=== PATIENT | female | born 1955 | race Caucasian/White ===

== ENCOUNTER 2017-11-10 08:56 | Emergency (ER) | payer BC, SELFPAY ==
[2017-11-10] MEDS ORDERED: Ibuprofen 800 MG TAB ONE (09:37)
--- NOTE | 2017-11-10 09:51 | RAD ---
RIGHT ANKLE 3 VIEWS: Date: 11/10/17 PROVIDED CLINICAL HISTORY: Right ankle pain status post fall. FINDINGS: Comparison made with the study dated 12/08/16. There is a somewhat irregular appearance to the lateral process of the talus that was not definitely present on the prior study. This could reflect osteophyte formation, though nondisplaced lateral zachery r process fracture cannot be excluded. There is a nondisplaced fracture involving the ac of the fift h metatarsal. Plantar calcaneal enthesophyte formation is seen. IMPRESSION: 1. Base of fifth metatarsal fracture. 2. Irregular appearance to the lateral process of the talus without adjacent soft tissue swelling. POS: [facility]
--- NOTE | 2017-11-10 10:03 | RAD ---
RIGHT FOOT 3 VIEWS: Date: 11/10/17 PROVIDED CLINICAL HISTORY: Injury. FINDINGS: Nondisplaced extraarticular base of fifth metatarsal fracture. No additional fracture is evident. Fannie ntar calcaneal enthesophyte formation is noted. IMPRESSION: Nondisplaced fifth metatarsal fracture. POS: [facility]
--- NOTE | 2017-11-10 10:03 | RAD ---
LEFT FOREARM 2 VIEWS: Date: 11/10/17 PROVIDED CLINICAL HISTORY: Pain status post injury. FINDINGS: There is no evidence for fracture or other acute osseous abnormality. If there is persistent clinical concern, conservative management and follow-up imaging are advised. IMPRESSION: As above. POS: [facility]
== END 2017-11-10 10:23 | disposition home or self-care (01) ==
LOC: ERS 08:56
DX: S92.354A Nondisplaced fracture of fifth metatarsal bone, right foot, initial encounter for closed fracture (principal); I10 Essential (primary) hypertension; W19.XXXA Unspecified fall, initial encounter
CPT/HCPCS: 28470